=== PATIENT | male | born 1935 | race Caucasian/White ===

== ENCOUNTER 2019-06-08 13:30 | Outpatient (CLI) | payer MEDICARE, SELFPAY ==
--- NOTE | ~2019-06-08 | XR_ITS ---
MODIFIED ESOPHAGRAM HISTORY: Dysphagia. TECHNIQUE: Modified barium esophagram was performed on 06/08/2019. I administered fluoroscopy and perfo rmed the exam with speech pathologist. Patient was seated for lateral fluoroscopic imaging for inges tion of thin liquids, pudding, solids and quantified amounts, followed by thin liquids an uncontrolle d amounts. This was recorded on tape. A single fluoroscopic spot image was also recorded. The DAP for this procedure was 1.86 Gycm2. The amount of fluoroscopy time used during this procedure was 2.9 min utes. FINDINGS: Oral stage: Adequate function. Pharyngeal stage: Adequate function. Cervical/esophageal stage: Adequate function. IMPRESSION: Patient tolerated regular consistency oral feedings in the upright position. Please esmer elate with speech pathologist findings and specific feeding recommendations. Reviewed, dictated and finalized at location A. [employer] IMPRESSION: Patient tolerated regular consistency oral feedings in the upright position. Please correlate with speech pathologist findings and specific feedi ng recommendations.
--- NOTE | 2019-06-08 14:50 | STOPEVAL ---
Modified Barium Swallow Evaluation: Attending Provider: Alverto Cramer MD Referring Provider: CELESTE Outpatient Evaluation Start: 06/08/19 14:00 Freq: Status: Active Protocol: Document 06/08/19 14:00 BECHERERT (Rec: 06/08/19 14:04 BECHERERT [id number]) Therapy Assessment Status Assessment Status Assessment Status Evaluation Outpatient Past Medical History Neurological History Hx Neurological Disorders No Significant History Respiratory History Hx Respiratory Disorders No Significant History Genitourinary History Hx Genitourinary Disorders No Significant History Musculoskeletal History Hx Gout Yes Pain Assessment Timing of Pain Assessment Timing of Pain Assessment Assessment Self Report Self Report Pain Level 0 Pain Scale Pain Scale Used Numeric (1 - 10) Pain Score Pain Score 0: Self Report Modified Barium Swallow Evaluation Recent Swallowing History Reports Dysphagia Yes: food seems to get lodged, water doesn't clear Duration of Dysphagia approximately 8 years Other Factors Impacting Dysphagia None History of Pneumonia No Reported Difficult Consistencies Solids Intake Method Prior to Swallow Oral Evaluation Diet Prior to Swallow Evaluation Regular, Level 7 Liquid Consistency Prior to Swallow Thin (0) Evaluation Dentition Comments missing teeth Consistency Thin Uncontrolled 2 Method of Presentation Straw Oral Preparatory Symptoms None Oral Phase Symptoms None Pharyngeal Phase Symptoms None Severity of Vallecular Residue None - 0% No Residue Severity of Pyriform Sinus Residue None - 0% No Residue 8 Point Laryngeal Penetration-Aspiration Material Does Not Enter Airway Scale Cervical/Esophageal Symptoms None Thin Uncontrolled 1 Method of Presentation Cup Oral Preparatory Symptoms None Oral Phase Symptoms None Pharyngeal Phase Symptoms None Severity of Vallecular Residue None - 0% No Residue Severity of Pyriform Sinus Residue None - 0% No Residue 8 Point Laryngeal Penetration-Aspiration Material Does Not Enter Airway Scale Cervical/Esophageal Symptoms None Solid Consistency Other Amount liquid/solid mix (fruit cocktail) and cracker Method of Presentation Spoon Oral Preparatory Symptoms None Oral Phase Symptoms None Pharyngeal Phase Symptoms None Severity of Vallecular Residue None - 0% No Residue Severity of Pyriform Sinus Residue None - 0% No Residue 8 Point Laryngeal Penetration-Aspiration Material Does Not Enter Airway Scale Cervical/Esophageal Sympt
== END 2019-06-08 13:31 | disposition home or self-care (01) ==
PROVIDERS: PCP Family Medicine; Visit Provider Family Medicine
DX: R13.10 Dysphagia, unspecified (principal)
CPT/HCPCS: 92611

== ENCOUNTER 2019-10-07 20:03 | Emergency (ER) | payer MEDICARE, SELFPAY ==
--- NOTE | ~2019-10-07 | CT_ITS ---
EXAMINATION: CT brain wo con DATE: 10/07/2019 21:35 INDICATION: Seizure and fall TECHNIQUE: Computed tomography (CT) of the head was performed without intravenous contrast. Sagittal and coronal reconstructions were performed. The mA was adjusted according to patient size. Iterative reconstruction technique was employed. The dose-length product was 605.33 mGy-cm. COMPARISON: head CT dated 05/18/2017 FINDINGS: No fracture. No acute intracranial hemorrhage, acute infarction or abnormal extra axial fluid collect ion. 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 There is mil d scattered white matter hypoattenuation consistent with chronic small vessel ischemic disease. Symme tric prominence of the sulci and ventricles consistent with moderate age-appropriate diffuse cerebral volume loss. No mass/mass effect. Changes of bilateral intraocular lens replacement. The orbits, par anasal sinuses and mastoid air cells are normal. Intracranial calcified cerebral atherosclerosis is n oted. IMPRESSION: 1. No fracture or acute intracranial process. 2. 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 3. Age-related changes including moderate diffuse volume loss and mild scattered white matter hypoatt enuation consistent with chronic small vessel ischemic disease. Reviewed, dictated and finalized at location A. IMPRESSION: 1. No fracture or acute intracranial process. 2. 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 3. Age-related changes including moderate diffuse volume loss and mild scattere d white matter hypoattenuation consistent with chronic small vessel ischemic di sease.
--- NOTE | ~2019-10-07 | XR_ITS ---
XR chest 1V portable DATE: 10/07/2019 20:37 INDICATION: Seizure TECHNIQUE: Portable upright AP chest on 10/07/2019 at 2038 hours COMPARISON: 03/15/2017 two-view chest FINDINGS: Diffuse osteopenia. Borderline or increased heart size. Aortic calcification and unfolding. There is mild infiltrate or a telectasis involving the lower lung zones. No pleural effusion or pulmonary vascular congestion or pn eumothorax. IMPRESSION: Mild infiltrate or atelectasis in the lower lung zones Reviewed, dictated and finalized at location A.
[2019-10-07 20:03] VITALS: BP 134/82; PULSE 98; RESP 26; TEMP 36.8; O2SAT 96
--- NOTE | 2019-10-07 20:10 | ECG_ITS ---
Measurements Intervals [place] Rate: 96 P: 18 AL: 175 QRS: -22 QRSD: 101 T: 73 QT: 348 QTc: 440 Interpretive Statements SINUS RHYTHM EARLY PRECORDIAL R/S TRANSITION LEFT VENTRICULAR HYPERTROPHY AND ST-T CHANGE BORDERLINE ST ABNORMALITY- ANTEROLAT/LAT LEADS BASELINE WANDER- I, II BORDERLINE ECG Electronically Signed On 10-07-2019 21:27:52 CDT by Jeff Doshi D.O.
--- NOTE | 2019-10-07 20:25 | ED.SEIZURE ---
HPI - Seizure General Chief Complaint: Seizure Stated Complaint: seizure Time Seen by Provider: 10/07/19 20:22 Source: RN notes reviewed History of Present Illness HPI Narrative: Patient presents emergency department from home via EMS for seizure. Patient states he has a history of seizures followed by Dr. Brown for neurology. Patient is on Keppra 500 mg twice a day but states did not take his Keppra since yesterday. Per the patient's patient was seen in chair when he had a seizure. This is his first seizure in several years. Patient is currently alert and oriented x3 but had been ANO x1 in route. Patient does state he bit his tongue denies any other injury at this time. Per the the patient did slide down out of his chair onto the floor questionably striking his head. Patient denies any recent illness denies any other symptoms at this time Related Data Home Medications Medication Instructions Recorded Confirmed levetiracetam 500 mg tablet 500 mg PO Q12H 05/11/19 Allergies Allergy/AdvReac Type Severity Reaction Status Date / Time doxycycline Allergy Unknown Itching Verified 10/07/19 20:16 Review of Systems Review of Systems: Narrative: Gen.: Denies fevers or chills Eyes: Denies eye pain or visual change ENT: Denies congestion Respiratory: Denies shortness of breath or cough CV: Denies chest pain or palpitations GI: Denies abdominal pain nausea, emesis or diarrhea Musculoskeletal: Denies back pain or muscle pain Neuro: See HPI Skin: Denies rash Except as documented, all other systems reviewed and negative PMFSH Past Medical History Medical History Allergic rhinitis BPH (benign prostatic hyperplasia) Diverticulosis Elevated cholesterol GERD (gastroesophageal reflux disease) Gout History of colon polyps HTN (hypertension) Hypothyroidism Stricture of esophagus Family History Family History (Updated 11/30/13 @ 07:13 by DOCTOR UNKNOWN) Mother Hypertension Father Asthma Social History Social History Smoking status: Never smoker Second hand tobacco smoke exposure: No Alcohol intake: former Drinks per week: 3 Substance use: never Substance use type: does not use Gender identity (if verbalized by the patient): Male Exam Narrative: Exam Narrative: APPEARANCE: No acute distress, nontoxic, resting in bed HEENT: Normocephalic, atraumatic, OMM, multiple abrasions to tongue EYES: PERRL, EOMI NECK: Supple, nontender, full range of motion without pain, no meningismus RESPIRATORY: No respiratory distress, clear to auscultation bilaterally with no rhonchi wheezing or rales CARDIOVASCULAR: RRR s murmur ABDOMINAL: Soft, nontender, nondistended MUSCULOSKELETAL: Moves all extremities. No clubbing, cyanosis or edema. NEURO: A and O ?3, following commands, speech normal, no facial droop, no focal deficits SKIN:: Warm, dry. Normal Color PSYCHIATRIC: Normal affect/mood Course Course Emergency Course: Patient ANO x3 in the emergency department able to get up and ambulate with no difficulty. No complaints at this time. Per at baseline per patient he has not been taking his Keppra as prescribed and is only been taking it intermittently. He states that his current neurologist retired and that his PCP has been trying to get him set up to see a new neurologist. Discussed with patient the importance of taking his Keppra as prescribed Discussed with patient results of workup and diagnosis. Discussed need for follow-up with primary care, proper use of medication, and reasons to return to the emergency department. Patient understands and agrees to current treatment plan Vital Signs Vital signs: Vital Signs Temperature 98.2 F 10/07/19 20:03 Pulse Rate 98 10/07/19 20:03 Respiratory Rate 26 H 10/07/19 20:03 Blood Pressure 134/82 10/07/19 20:03 Pulse Oximetry 96 10/07/19 20
[2019-10-07 20:27] LABS: Basophils Percent Auto 0.3 % (0.2-1.2); Eosinophils Absolute Auto 0.1 K/mm3 (0-0.3); Eosinophils Percent Auto 0.5 % (0-4.4); Hemoglobin 15.8 g/dL (14.0-18.0); Immature Granulocyte Absolute 0.08 K/mm3 (0.00-0.031); Immature Granulocyte Percent A 0.7 % (0-0.5); Lymphocytes Percent Auto 24.5 % (18.3-44.2); Mean Corpuscular HGB Conc 35.1 g/dl (32-36); Mean Corpuscular Hemoglobin 33.6 pg (26-34); Mean Corpuscular Volume 95.7 fl (80-100); Mean Platelet Volume 9.5 fl (7.4-10.4); Monocytes Absolute Auto 0.8 K/mm3 (0.1-0.6); Monocytes Percent Auto 7.3 % (2.6-8.5); Neutrophils Absolute Auto 7.4 K/mm3 (1.3-6.7); Neutrophils Percent Auto 66.7 % (45.5-73.1); Platelet Count Result 208 k/mm3 (150-375)
[2019-10-07] MEDS: levETIRAcetam 500MG/NACL 100ML 500 MG/100 ML BAG 400 MG IVPB (20:30)
[2019-10-07 20:41] LABS: Albumin Level 4.3 g/dL (3.5-5.1); Alkaline Phosphatase 85 U/L (38-126); Aspartate Amino Transferase 22 U/L (17-59); Bilirubin,Total 0.7 mg/dL (0.2-1.3); Blood Urea Nitrogen 19 mg/dL (9-20); Calcium 8.8 mg/dL (8.4-10.2); Carbon Dioxide 15 mmol/L (22-30); Chloride 96 mmol/L (98-107); Estimated Glomerular Filt Rate > 60; Glucose 140 mg/dL (75-110); Potassium 3.8 mmol/L (3.4-5.0); Sodium 129 mmol/L (137-145)
[2019-10-07 20:47] LABS: Alanine Aminotransferase 22 U/L (4-50)
[2019-10-07 20:48] VITALS: BP 123/78; PULSE 87; RESP 20; O2SAT 94
--- NOTE | 2019-10-07 20:49 | PC.NURSE ---
pt states unable to void at this time. states will try again later
[2019-10-07 21:15] VITALS: BP 129/84; PULSE 85; RESP 20; O2SAT 97
--- NOTE | 2019-10-07 21:15 | PC.NURSE ---
pt unable to void at this time refuses straight cath
[2019-10-07] MEDS: SODIUM CHLORIDE 0.9% IV 1,000 ML 999 ML IV CONT (21:57)
[2019-10-07 21:58] VITALS: BP 138/88; PULSE 83; RESP 16; O2SAT 97
[2019-10-07 22:31] VITALS: BP 147/89; PULSE 84; RESP 22; O2SAT 97
--- NOTE | 2019-10-07 23:00 | PC.NURSE ---
PT AMBULATED IN HALLWAY WITH STEADY GAIT. PT ALERT AND ORIENTED X4. NEURO CHECKS WNL. DR VICTOR NOTIFIED
[2019-10-07 23:02] VITALS: BP 160/92; PULSE 88; RESP 20; O2SAT 96
[2019-10-07 23:04] LABS: Add Urine Microscopic? NO; Appearance Urine Clear (Clear); Bilirubin Urine Negative (Negative); Blood Urine Negative (Negative); Color Urine Straw (Yellow); Glucose Urine UA Negative (Negative); Ketones Urine Negative (Negative); Leukocyte Esterase Ur Negative LEU/UL (Negative); Nitrate Urine Negative (Negative); Protein Urine Negative (Negative); Specific Grav Ur 1.012 (1.001-1.035); Urobilinogen Urine Negative mg/dL (<2.0)
[2019-10-08 00:04] VITALS: BP 133/88; PULSE 82; RESP 20; O2SAT 96
== END 2019-10-08 00:15 | disposition home or self-care (01) ==
PROVIDERS: Emergency Provider Emergency Medicine; PCP Family Medicine
DX: G40.909 Epilepsy, unspecified, not intractable, without status epilepticus (principal); N40.0 Benign prostatic hyperplasia without lower urinary tract symptoms; K21.9 Gastro-esophageal reflux disease without esophagitis; E78.00 Pure hypercholesterolemia, unspecified; M10.9 Gout, unspecified; K57.90 Diverticulosis of intestine, part unspecified, without perforation or abscess without bleeding; I10 Essential (primary) hypertension; E03.9 Hypothyroidism, unspecified; Z87.891 Personal history of nicotine dependence; R91.8 Other nonspecific abnormal finding of lung field; I51.7 Cardiomegaly; R94.31 Abnormal electrocardiogram [ECG] [EKG]
CPT/HCPCS: 36415; 70450; 71045; 80053; 81003; 85025; 93005; 96365; 99284; J1953; J7030

== ENCOUNTER 2019-11-17 06:36 | Outpatient (CLI) | payer MEDICARE, SELFPAY ==
--- NOTE | 2019-11-17 07:30 | NEURO_ITS ---
TEST: ELECTROENCEPHALOGRAM DIAGNOSIS: SEIZURES PATIENT NUMBER: [id number] EEG NUMBER: [id number] RECORDING DATE: 11/17/19 CLINICAL HISTORY: Patient reported he had a seizure about 8 years ago and been well controlled until the last couple of months. CONDITION OF RECORDING: Awake, drowsy and sleep EEG DESCRIPTION: Basic resting occipital frequency consists of medium voltage 5- 7hz theta mixed and superimposed by low voltage 15-21hz beta. During drowsiness theta activity is seen intermittently mixed with the posterior alpha rhythms. Photic stimulation produced poor drive. Bilateral symmetrical sleep activity is seen during sleep. Nonparoxysmal. Nonfocal. Nonlateralizing. IMPRESSION: Abnormal record due to the presence of excessive amount of theta activity mixed with the delta activity. No evidence of normal background rhythms. Clinical correlation recommended. These abnormalities could be consistent with organic or metabolic encephalopathy. MTDD
== END 2019-11-17 06:37 | disposition home or self-care (01) ==
PROVIDERS: PCP Family Medicine; Visit Provider Psychiatry & Neurology Neurology
DX: R56.9 Unspecified convulsions (principal); R94.01 Abnormal electroencephalogram [EEG]
CPT/HCPCS: 95816

== ENCOUNTER 2019-12-12 12:42 | Outpatient (CLI) | payer MEDICARE, SELFPAY ==
--- NOTE | ~2019-12-12 | MR_ITS ---
EXAMINATION: MR brain/brain stem wo con EXAM DATE: 12/12/2019 13:41 INDICATION: Memory loss. TECHNIQUE: Magnetic resonance imaging (MRI) of the brain/brain stem obtained without contrast. Sagitt al T1, axial diffusion, gradient echo (T2*), T1, T2, FLAIR sequences obtained. There is no prior st udy for comparison. FINDINGS: There are no areas of restricted diffusion to suggest acute infarction. There is no acute hemorrhage seen on the T2*, a hemosiderin sensitive sequence. No intraparenchymal brain mass lesion. There is mild periventricular and subcortical T2/FLAIR signal hyperintensity, nonspecific but probab ly related to small vessel ischemic disease (microangiopathy). There is moderate prominence of the sulci and ventricles related to cerebral atrophy. There are no extra-axial collections. Flow voids are seen in the cerebral arteries on the T2-weighted sequences consistent with their expected patenc y. Patient has had bilateral ocular lens surgery. Soft tissue is unremarkable. Small right maxillar y sinus mucous retention cyst. IMPRESSION: 1. Chronic age related findings. Reviewed, dictated and finalized at location A.
== END 2019-12-12 12:43 | disposition home or self-care (01) ==
PROVIDERS: PCP Family Medicine; Visit Provider Psychiatry & Neurology Neurology
DX: R41.3 Other amnesia (principal)
CPT/HCPCS: 70551

== ENCOUNTER → 2020-06-11 02:44 | Outpatient (CLI) | payer OTHER, SELFPAY ==
[2020-06-11 22:46] LABS: SARS-CoV-2 RNA PCR Negative
== END ==
PROVIDERS: PCP Family Medicine; Visit Provider Internal Medicine Gastroenterology
DX: Z01.812 Encounter for preprocedural laboratory examination (principal); Z20.822 Contact with and (suspected) exposure to COVID-19
CPT/HCPCS: C9803; U0003; U0005

== ENCOUNTER 2020-06-14 01:32 | Day surgery (SDC) | payer OTHER, SELFPAY ==
[2020-06-05 14:02] VITALS: BMI 24.9
[2020-06-14 12:40] VITALS: BP 181/92; PULSE 62; RESP 20; TEMP 36; O2SAT 98
[2020-06-14 12:56] VITALS: BMI 23.2
[2020-06-14] MEDS: LACTATED RINGERS 1,000 ML 150 ML IV CONT (13:15)
--- NOTE | 2020-06-14 14:02 | WPDANESEPPF ---
Anes - Initial Pre Proc Eval Procedure: Operation Date: 06/14/20 14:00 Proposed Procedures p Esophagogastroduodenoscopy - Kenji Loera MD Date/Time: 06/14/20 14:02 Surgeon: Kenji Loera MD Pre Op Diagnosis: Dysphagia Patient Data Age: 84 Gender: M Height: 5 ft 6 in Weight: 65.4 kg Last Vital Signs Temp 96.8 F L 06/14/20 12:40 Pulse 62 06/14/20 12:40 Resp 20 06/14/20 12:40 BP 181/92 H 06/14/20 12:40 Pulse Ox 98 06/14/20 12:40 Allergies Allergy/AdvReac Type Severity Reaction Status Date / Time doxycycline Allergy Unknown Itching Verified 06/14/20 12:53 Home Medications Medication Instructions Recorded Confirmed Type levetiracetam 500 mg tablet 750 mg PO Q12H tablet 02/12/20 06/14/20 History lisinopril 2.5 mg tablet 2.5 mg PO DAILY #30 tablet 03/12/20 06/05/20 Rx allopurinol 300 mg tablet 150 mg PO DAILY #60 tablet 03/13/20 06/05/20 Rx levothyroxine 75 mcg tablet 75 mcg PO DAILY #90 tablet 03/13/20 06/14/20 Rx Patient hx anesthesia problems: none Family hx anesthesia problems: none PMFSH Past Medical History Medical History (Updated 05/28/20 @ 11:34 by LINDA MetcalfN-C) Allergic rhinitis BPH (benign prostatic hyperplasia) Diverticulosis Dysphagia Elevated cholesterol GERD (gastroesophageal reflux disease) Gout History of colon polyps HTN (hypertension) Hypothyroidism Stricture of esophagus Family History Family History Mother Hypertension Father Asthma Social History Social History Smoking status: Never smoker Second hand tobacco smoke exposure: No Alcohol intake: never Drinks per week: 3 Substance use: never Substance use type: does not use Living arrangements: with family Gender identity (if verbalized by the patient): Male Spiritual care concerns: No Anes - Eval Final PreProcedure Day of Procedure 06/14/20 14:02 Patient weight: normal Heart: regular rate and rhythm Lungs: clear to auscultation Airway: Mallampati scale class III Neurological: alert and oriented Last oral intake: >/= 8 hours ASA classification: III Emergent: no Anesthetic plan: proceed Anesthesia type and monitoring: general GIVS and standard monitoring Informed Consent: The patient's anesthetic plan and its attendant risks and benefits were discussed with the patient/family/POA. Questions were solicited and answers provided to the satisfaction of the patient/family/POA.
--- NOTE | 2020-06-14 14:11 | WPDHPUPDATE1 ---
History and Physical Update Update Date/Time: 06/14/20 14:11 History and Physical has been reviewed, including an updated exam of the patient. There are NO changes in the patient's condition. Risks, benefits, and alternatives have been discussed and questions answered. Patient agrees to proceed with procedure.
[2020-06-14 14:28] VITALS: BP 143/81; PULSE 71; RESP 20; O2SAT 94
[2020-06-14 14:38] VITALS: BP 148/86; PULSE 59; RESP 15; O2SAT 96
[2020-06-14 14:48] VITALS: BP 167/96; PULSE 56; RESP 14; O2SAT 98
== END 2020-06-14 14:55 | disposition home or self-care (01) ==
PROVIDERS: PCP Family Medicine; Visit Provider Internal Medicine Gastroenterology
PROC: 0DJ08ZZ Inspection of Upper Intestinal Tract, Via Natural or Artificial Opening Endoscopic (ICD-10-PCS; CPT 43235; principal; 2020-06-14 14:00)
DX: K22.2 Esophageal obstruction (principal); K44.9 Diaphragmatic hernia without obstruction or gangrene; I10 Essential (primary) hypertension; E03.9 Hypothyroidism, unspecified; N40.0 Benign prostatic hyperplasia without lower urinary tract symptoms; G40.909 Epilepsy, unspecified, not intractable, without status epilepticus; K57.30 Diverticulosis of large intestine without perforation or abscess without bleeding; E78.00 Pure hypercholesterolemia, unspecified; Z86.010 Personal history of colon polyps
CPT/HCPCS: 43249; C1726; C9803; J2704; J7120; U0003; U0005

== ENCOUNTER 2021-11-09 12:15 | Emergency (ER) | payer OTHER, SELFPAY ==
[2021-11-09 12:33] VITALS: BP 141/77; PULSE 68; RESP 18; TEMP 36.8; O2SAT 100
--- NOTE | 2021-11-09 12:47 | ED.GENADULT ---
HPI - General Adult General Chief complaint: Skin/Abscess/Foreign Body Stated complaint: open wound lt arm History of Present Illness HPI narrative: Patient is an 86-year-old male who presents to the [facility] via POV accompanied by spouse for an evaluation of a skin problem. Patient reports a laceration to left forearm caused by scissors today. Patient reports he was attempting to remove a Band-Aid when he accidentally cut himself. He also reports a open wound to dorsal aspect of left forearm that has been oozing a clear, yellow drainage x1 week. He believes was caused by an insect bite. The wound on dorsal aspect of left forearm he is not up-to-date on his tetanus prompting today's visit. Related Data Allergies Allergy/AdvReac Type Severity Reaction Status Date / Time doxycycline Allergy Unknown Itching Verified 09/02/21 13:57 adhesive tape Allergy Unknown Verified 11/09/21 12:41 Review of Systems Review of Systems: Pertinent negatives fever, chills, sweats, malaise, poor p.o. intake, change in appetite, headache, LOC, swelling, erythema, warmth, dizziness, streaking, numbness, tingling, loss of sensation, foreign body sensation, deformity, sob, chest pain, and heart palpitations/murmurs. PMFSH Past Medical History Medical History Allergic rhinitis BPH (benign prostatic hyperplasia) Diverticulosis Dysphagia Elevated cholesterol GERD (gastroesophageal reflux disease) Gout History of colon polyps HTN (hypertension) Hypothyroidism Shingles Stricture of esophagus Family History Family History Mother Hypertension Father Asthma Social History Social History Smoking status: Never smoker Second hand tobacco smoke exposure: No Alcohol intake: former Drinks per week: 3 Substance use: never Substance use type: does not use Gender identity (if verbalized by the patient): Male Spiritual care concerns: No Comments I have reviewed and agree with the patient's past medical, surgical, social, and family hx as documented by the RN. There is no relevant family history pertinent to the presenting complaint. Exam Narrative: GENERAL: Well-appearing, well-nourished, and in no acute distress. HEAD: Normocephalic, atraumatic. No facial swelling appreciated. EYES: PERRLA and EOMI. No evidence of erythema, swelling, or drainage. ENT: Nares clear, no rhinorrhea or epistaxis.Mucous membranes moist and pink. Uvula is midline without erythema and swelling. No evidence of obstruction, petechial rash, cobblestoning, lesions, ulcers, erythema, swelling, exudates, peritonsillar abscess, tenting, or drooling. Breath odor and voice normal. NECK: Supple. No Lymphadenopathy or nuchal rigidity appreciated. CHEST: Bilateral lung ray are clear to auscultation. No respiratory distress. No evidence of cough or pleuritic cp upon examination. HEART: Regular rate and rhythm. No murmur, gallop, or rub heard. EXTREMITIES: Normal range of motion. No edema. SKIN: Warm, dry. 1.5 cm laceration noted to palmar aspect of mid forearm. Laceration is superficial and appears to be scabbed over. 1.5 cm open wound noted to dorsal aspect of left forearm. Wound is consistent with skin tear. No evidence of cellulitis, abscess, streaking, induration, abrasions/lacerations, petechiae, hematoma, contusion, drainage, or bleeding. NEURO: No focal deficits. Alert and oriented x3. Course Course Level of Care: Express Care Visit Vital Signs Vital signs: Vital Signs Temperature 98.2 F 11/09/21 12:33 Pulse Rate 68 11/09/21 12:33 Respiratory Rate 18 11/09/21 12:33 Blood Pressure 141/77 H 11/09/21 12:33 Pulse Oximetry 100 11/09/21 12:33 Oxygen Delivery Room Air 11/09/21 12:33 Temperature 98.2 F 11/09/21 12:33 Pulse Rate 68 11/09/21 12:33 R
[2021-11-09] MEDS: TETANUS/DIPHTHERIA TOXOIDS ADSORB 0.5 ML VIAL (*BKC) IM (13:06)
== END 2021-11-09 13:21 | disposition home or self-care (01) ==
PROVIDERS: Emergency Provider Nurse Practitioner Family; PCP Family Medicine
DX: S51.812A Laceration without foreign body of left forearm, initial encounter (principal); W27.2XXA Contact with scissors, initial encounter; Y93.9 Activity, unspecified; S51.802A Unspecified open wound of left forearm, initial encounter; X58.XXXA Exposure to other specified factors, initial encounter; Z23 Encounter for immunization; N40.0 Benign prostatic hyperplasia without lower urinary tract symptoms; E78.00 Pure hypercholesterolemia, unspecified; K21.9 Gastro-esophageal reflux disease without esophagitis; M10.9 Gout, unspecified; I10 Essential (primary) hypertension; E03.9 Hypothyroidism, unspecified
CPT/HCPCS: 90471; 90714; 99212; G0463

== ENCOUNTER 2022-09-16 15:03 | Outpatient (CLI) | payer OTHER, SELFPAY ==
[2022-09-16 19:43] LABS: Mean Corpuscular Volume 88.3 fl (80-100); Red Cell Distribution Width 14.8 % (11.5-14.5); White Blood Count 6.4 K/mm3 (4.5-10.0)
[2022-09-17 08:44] LABS: Alanine Aminotransferase 22 U/L (6-50); Albumin Level 3.8 g/dL (3.5-5.1); Alkaline Phosphatase 70 U/L (38-126); Anion Gap 3 mmol/L (8-16); Aspartate Amino Transferase 30 U/L (17-59); Bilirubin,Total 0.8 mg/dL (0.2-1.3); Blood Urea Nitrogen 21 mg/dL (9-20); Calcium 8.6 mg/dL (8.4-10.2); Carbon Dioxide 31 mmol/L (22-30); Chloride 100 mmol/L (98-107); Cholesterol 174 mg/dL (0-200); Estimated Glomerular Filt Rate > 60; Glucose 86 mg/dL (65-110); HDL Direct 72 mg/dL; LDL Cholesterol Direct 77 mg/dL; Potassium 4.1 mmol/L (3.4-5.0); Sodium 134 mmol/L (137-145); Triglycerides 82 mg/dL (<150)
[2022-09-17 08:45] LABS: Hemoglobin A1C 4.9 % (<5.7)
[2022-09-17 15:42] LABS: Red Blood Count 4.32 M/mm3 (4.6-6.20)
[2022-09-17 15:43] LABS: Hematocrit 43.9 % (42.0-52.0); Hemoglobin 14.7 g/dL (14.0-18.0); Mean Corpuscular HGB Conc 33.5 g/dl (32-36); Platelet Count Result 169 k/mm3 (150-375)
[2022-09-17 15:44] LABS: Mean Platelet Volume 10.6 fl (7.4-10.4)
== END 2022-09-16 15:04 | disposition home or self-care (01) ==
LOC: ANHLAB 15:05
PROVIDERS: PCP Family Medicine; Visit Provider Physician Assistant
DX: E03.9 Hypothyroidism, unspecified (principal); I10 Essential (primary) hypertension; R73.01 Impaired fasting glucose; E78.00 Pure hypercholesterolemia, unspecified
CPT/HCPCS: 36415; 80053; 80061; 83036; 84443; 85027

== ENCOUNTER 2023-03-10 14:53 | Outpatient (CLI) | payer OTHER, SELFPAY ==
[2023-03-10 15:18] LABS: Hematocrit 44.5 % (42.0-52.0); Mean Corpuscular HGB Conc 33.7 g/dl (32-36); Mean Corpuscular Hemoglobin 33.8 pg (26-34); Mean Corpuscular Volume 100.2 fl (80-100); Mean Platelet Volume 10.1 fl (7.4-10.4); Platelet Count Result 142 k/mm3 (150-375); Red Blood Count 4.44 M/mm3 (4.6-6.20); Red Cell Distribution Width 12.9 % (11.5-14.5); White Blood Count 6.7 K/mm3 (4.5-10.0)
[2023-03-10 15:31] LABS: Alanine Aminotransferase 15 U/L (6-50); Alkaline Phosphatase 82 U/L (38-126); Anion Gap 7 mmol/L (8-16); Aspartate Amino Transferase 24 U/L (17-59); Bilirubin,Total 0.9 mg/dL (0.2-1.3); Blood Urea Nitrogen 25 mg/dL (9-20); Calcium 8.8 mg/dL (8.4-10.2); Carbon Dioxide 29 mmol/L (22-30); Chloride 97 mmol/L (98-107); Estimated Glomerular Filt Rate > 60; Glucose 92 mg/dL (65-110); Potassium 4.8 mmol/L (3.4-5.0); Sodium 133 mmol/L (137-145)
[2023-03-10 16:01] LABS: Thyroid Stimulating Hormone 0.358 uIU/mL (0.465-4.680)
[2023-03-10 16:37] LABS: Folic Acid 11.3 ng/mL (2.76->20); Vitamin B12 < 159.0 pg/mL (239-931)
== END 2023-03-10 14:54 | disposition home or self-care (01) ==
PROVIDERS: PCP Family Medicine; Visit Provider Family Medicine
DX: G40.909 Epilepsy, unspecified, not intractable, without status epilepticus (principal); R63.4 Abnormal weight loss; R53.83 Other fatigue; R13.10 Dysphagia, unspecified
CPT/HCPCS: 36415; 80053; 82607; 82746; 84443; 85027

== ENCOUNTER 2023-04-21 11:44 | Outpatient (CLI) | payer OTHER, SELFPAY ==
[2023-04-21 13:32] LABS: Folic Acid > 20.0 ng/mL (2.76->20)
== END 2023-04-21 11:45 | disposition home or self-care (01) ==
LOC: ANHLAB 11:48
PROVIDERS: PCP Family Medicine; Visit Provider Family Medicine
DX: E53.8 Deficiency of other specified B group vitamins (principal)
CPT/HCPCS: 36415; 82607; 82746

== ENCOUNTER 2023-06-23 15:07 | Outpatient (CLI) | payer OTHER, SELFPAY ==
[2023-06-25 14:31] LABS: Folic Acid > 20.0 ng/mL (2.76->20)
== END 2023-06-23 15:08 | disposition home or self-care (01) ==
LOC: ANHLAB 15:10
PROVIDERS: PCP Family Medicine; Visit Provider Family Medicine
DX: R13.10 Dysphagia, unspecified (principal); E03.9 Hypothyroidism, unspecified; E53.8 Deficiency of other specified B group vitamins
CPT/HCPCS: 36415; 82607; 82746; 84443

== ENCOUNTER 2023-06-28 13:08 | Outpatient (CLI) | payer OTHER, SELFPAY ==
--- NOTE | 2023-06-28 | ECG_ITS ---
Measurements Intervals [place] Rate: 59 P: 60 KS: 155 QRS: -25 QRSD: 108 T: -4 QT: 423 QTc: 419 Interpretive Statements SINUS BRADYCARDIA LEFT VENTRICULAR HYPERTROPHY MINIMAL Q WAVES- HIGH LATERAL LEADS BORDERLINE T WAVE ABNORMALITY- INFERIOR LEADS BASELINE ARTIFACT- I, II, III, AVR, AVL, AVF, V1, V4-V6 BORDERLINE ECG COMPARED TO ECG 10/07/2019 20:08:36 SINUS BRADYCARDIA NOW PRESENT Electronically Signed On 06-28-2023 14:13:31 CDT by Jeff Doshi D.O.
[2023-06-28 14:01] LABS: Anion Gap 0 mmol/L (8-16); Blood Urea Nitrogen 28 mg/dL (9-20); Calcium 8.8 mg/dL (8.4-10.2); Carbon Dioxide 33 mmol/L (22-30); Chloride 103 mmol/L (98-107); Estimated Glomerular Filt Rate 52; Glucose 84 mg/dL (65-110); Potassium 4.3 mmol/L (3.4-5.0); Sodium 136 mmol/L (137-145)
== END 2023-06-28 13:09 | disposition home or self-care (01) ==
PROVIDERS: PCP Family Medicine; Visit Provider Nurse Anesthetist, Certified Registered
DX: Z01.818 Encounter for other preprocedural examination (principal); I10 Essential (primary) hypertension
CPT/HCPCS: 36415; 80048; 93005

== ENCOUNTER 2023-09-14 08:28 | Outpatient (CLI) | payer OTHER, SELFPAY ==
[2023-09-14 09:58] LABS: Hematocrit 44.2 % (42.0-52.0); Hemoglobin 14.8 g/dL (14.0-18.0); Mean Corpuscular HGB Conc 33.5 g/dl (32-36); Mean Corpuscular Hemoglobin 34.7 pg (26-34); Mean Corpuscular Volume 103.8 fl (80-100); Mean Platelet Volume 10.8 fl (7.4-10.4); Platelet Count Result 151 k/mm3 (150-375); Red Blood Count 4.26 M/mm3 (4.6-6.20); Red Cell Distribution Width 12.2 % (11.5-14.5); White Blood Count 7.4 K/mm3 (4.5-10.0)
[2023-09-14 10:06] LABS: Alanine Aminotransferase 20 U/L (6-50); Alkaline Phosphatase 81 U/L (38-126); Anion Gap 6 mmol/L (4-12); Aspartate Amino Transferase 25 U/L (17-59); Bilirubin,Total 0.9 mg/dL (0.2-1.3); Blood Urea Nitrogen 25 mg/dL (9-20); Calcium 8.9 mg/dL (8.4-10.2); Carbon Dioxide 29 mmol/L (22-30); Chloride 102 mmol/L (98-107); Cholesterol 165 mg/dL (0-200); Estimated Glomerular Filt Rate > 60; Glucose 88 mg/dL (65-110); HDL Direct 63 mg/dL; Potassium 3.9 mmol/L (3.4-5.0); Sodium 137 mmol/L (137-145); Triglycerides 57 mg/dL (<150)
[2023-09-14 10:15] LABS: Appearance Urine Clear (Clear); Bilirubin Urine Negative (Negative); Blood Urine Negative (Negative); Color Urine Yellow (Yellow); Glucose Urine UA Negative (Negative); Ketones Urine Negative (Negative); Leukocyte Esterase Ur Negative LEU/UL (Negative); Nitrate Urine Negative (Negative); Protein Urine Negative (Negative); Specific Grav Ur 1.021 (1.001-1.035); Urobilinogen Urine 0.2 mg/dL (<2.0); pH Urine 5.5 (5.0-9.0)
[2023-09-14 10:17] LABS: LDL Cholesterol Direct 82 mg/dL
[2023-09-14 10:21] LABS: Add Urine Microscopic? NO
== END 2023-09-14 08:29 | disposition home or self-care (01) ==
PROVIDERS: PCP Family Medicine; Visit Provider Family Medicine
DX: E03.9 Hypothyroidism, unspecified (principal); E78.00 Pure hypercholesterolemia, unspecified; G40.909 Epilepsy, unspecified, not intractable, without status epilepticus; I10 Essential (primary) hypertension; Z00.00 Encounter for general adult medical examination without abnormal findings; R13.10 Dysphagia, unspecified; G45.9 Transient cerebral ischemic attack, unspecified
CPT/HCPCS: 36415; 80053; 80061; 81003; 84443; 85027

== ENCOUNTER 2024-05-09 16:59 | Outpatient (CLI) | payer OTHER, SELFPAY ==
--- NOTE | ~2024-05-09 | XR_ITS ---
HISTORY: left lateral foot pain COMPARISON: None TECHNIQUE: 3 views of the left foot were performed FINDINGS: No acute fracture or acute dislocation is appreciated. Mild degenerative disease is noted. The base of the fifth metatarsal is intact. Small calcaneal spur is noted. Trace ossification of the insertion of the Achilles tendon. Trace soft tissue swelling along the dorsum of the left forefoot. Significantly dense pattern of bone mineralization for which a systemic process is suspected. Calcified atherosclerotic disease within the visualized soft tissues IMPRESSION: Trace degenerative disease without acute fracture. Significantly dense pattern of bone mineralization for which a systemic process is suspected. Reviewed, dictated and finalized at location A. ING FOREMAN
--- OUTSIDE RECORDS SUMMARY | 2024-05-09 17:03 | XMS_ITS | Clinical Summary ---
Author Organization [facility] Address [address] [place] [id number] Care Team Providers Care Stock Driver Name Role Phone Unavailable Primary Care Provider Unavailabl e Social History Tobacco Use Types Packs/Day Years Used Date Smoking Tobacco: Never Assessed Sex and Gender Information Value Date Recorded Sex Assigned at Not on file Legal Sex Male 8:32 PM CDT Gender Identity Not on file Sexual Orientation Not on file Plan of Treatment Health Maintenance Due Date Last Done Comments DTaP, Tdap and Td Vaccines ( 1 - Tdap) 1954 Zoster Vaccines (1 of 2) 1984 Pneumococcal Vaccine: 65+ Ye ars (1 of 1 - PCV) 07/23/1999 RSV Immunization or 60+ Years (1 - 1-dose 75+ series) 2009 COVID-19 Vaccine ( - 2023-2 5 season) 2023 Influenza Adult (#1) 2024 Meningococcal B Vaccine Aged Out No l onger eligible based on patient's age to complete this topic Meningococcal Vaccine Aged Out No aisha amilcar eligible based on patient's age to complete this topic RSV Immunizations Under 20 Months Aged Out No longer eligible based on patient's age to complete this topic
--- OUTSIDE RECORDS SUMMARY | 2024-05-09 17:03 | XMS_ITS | Continuity of Care Document ---
Author Organization [facility] Address [address] [place] [address] Phone Care Team Providers Care Advertising Agency Manager Name Role Phone Christian Monson Unavailable Unavailable Procedures Procedure Date Post-op Follow-up Visit Post-op Follow-up Visit Remove Cataract, Insert Lens,Comanaged D Office/outpatient Visit, Est IOLMaster Advance Directives Directive Yes / No Effective Date File Name No Information Encounters Encounter Description Practice Location Reason(s) For Visit Diagnoses Date Provider Providers Copied on Encounter [facility], [address], [place], [place], [id number], tel:[phone] [facility] No Information 8 Iona Gonzales. [address] [facility] [address] [facility] [address] , [address], [place], [place], [facility], . tel:[phone] Referring Provider: Zaina Gibson OD, [address] [facility], [place], [address]. tel:[phone] [facility], [address], [place], [place], [id number], [place] tel:[phone] [facility] No Information 8 Iona Gonzales. [address] , [address], [place], [address], . tel:[phone] Referring Provider: Zaina Gibson OD, [address] [facility], [place], [address]. tel:[phone] [facility], [address], [place], [place], [id number], tel:[phone] [facility] No Information 8 Doi Edward. [address] , [address], [place], [place], [facility], . tel:[phone] Referring Provider: Zaina Gibson OD, [address] [facility], [place], [address]. tel:[phone] Office/outpat ient Visit, [facility], [address], [place], [place], [id number], [place] tel:[phone] [facility] No Information 8 [facility] Edjuanita. [address] [facility] , [address], [place], [place], [facility], . tel:[phone] Referring Provider: Zaina Gibson OD, [address] [facility], [place], [address]. tel:[phone] Family History Family Member Type Diagnosis Age At Onset No Information Payers Payer name Insurance type Covered libertarian ID Authoriza tion(s) No Information Social History Type Description Quantity Date Captured Comments Sex Male Smoking Status No Information Chief Complaint And Reason For Visit No Information Reason For Referral Reason For Referral No Information History Of Present Illness Encounter Date Complaint History Of Prese nt Illness No Information Functional Status Date Functional Assessmen t No Information Instructions Date Instruction Additional Infor mation No Information Assessments Type Assessment Date No Information Patient Care Teams Name Effective Dates (start - stop) Status Members No Information
== END 2024-05-09 17:00 | disposition home or self-care (01) ==
PROVIDERS: PCP Family Medicine; Visit Provider Physician Assistant
DX: M79.672 Pain in left foot (principal)
CPT/HCPCS: 73630

== ENCOUNTER 2024-05-15 13:47 | Outpatient (CLI) | payer OTHER, SELFPAY ==
--- OUTSIDE RECORDS SUMMARY | 2024-05-15 14:01 | XMS_ITS | Clinical Summary ---
Author Organization [facility] Address [address] [place] [address] Care Team Providers Care Liquor Department Manager Name Role Phone Unavailable Primary Care Provider [...]
--- OUTSIDE RECORDS SUMMARY | 2024-05-15 14:01 | XMS_ITS | Continuity of Care Document ---
Author Organization [facility] Address [address] [place] [address] Phone Care Team Providers Care Carbon Blocks Press Operator Name Role Phone Christian Monson Unavailable Unavailable Procedures Procedure Date Post-op Follow-up Visit Post-op Follow-up Visit Remove Cataract, Insert Lens,Comanaged D Office/outpatient Visit, Est IOLMaster Advance Directives Directive Yes / No Effective Date File Name No Information Encounters Encounter Description Practice Location Reason(s) For Visit Diagnoses Date Provider Providers Copied on Encounter [facility], [address], [place], [place], [id number], tel:[phone] [facility] No Information 8 Iona Gonzales. [address] [facility] , [address], [place], [place], [facility], . tel:[phone] Referring Provider: Zaina Gibson OD, [address] [facility], [place], [address]. tel:[phone] [facility], [address], [place], [place], [id number], [place] tel:[phone] [facility] No Information 8 Iona Gonzales. [address] [facility] , [address], [place], [address], . tel:[phone] Referring Provider: Zaina Gibson OD, [address] [facility], [place], [address]. tel:[phone] [facility], [address], [place], [place], [id number], tel:[phone] [facility] No Information 8 Doi Edward. [address] [facility] , [address], [place], [place], [facility], . tel:[phone] Referring Provider: Zaina Gibson OD, [address] [facility], [place], [address]. tel:[phone] Office/outpat ient Visit, [facility], [address], [place], [place], [address], [place] tel:[phone] [facility] No Information 8 [facility] Edjuanita. [address] [facility] , [address], [place], [place], [facility], . tel:[phone] Referring Provider: Zaina Gibson OD, [address] [facility], [place], [address]. tel:[phone] Family History Family Member Type Diagnosis Age At Onset No Information Payers Payer name Insurance type Covered alliance party ID Authoriza tion(s) No Information Social History [...]
[2024-05-15 14:55] LABS: Alanine Aminotransferase 28 U/L (6-50); Albumin Level 3.5 g/dL (3.5-5.1); Alkaline Phosphatase 116 U/L (38-126); Anion Gap 4 mmol/L (4-12); Aspartate Amino Transferase 27 U/L (17-59); Bilirubin,Total 0.7 mg/dL (0.2-1.3); Blood Urea Nitrogen 24 mg/dL (9-20); Calcium 8.7 mg/dL (8.4-10.2); Carbon Dioxide 30 mmol/L (22-30); Chloride 104 mmol/L (98-107); Estimated Glomerular Filt Rate > 60; Glucose 90 mg/dL (65-110); Potassium 4.6 mmol/L (3.4-5.0); Sodium 138 mmol/L (137-145); Uric Acid 4.1 mg/dL (3.5-8.5)
== END 2024-05-15 13:48 | disposition home or self-care (01) ==
PROVIDERS: PCP Family Medicine; Visit Provider Physician Assistant
DX: E03.9 Hypothyroidism, unspecified (principal); I10 Essential (primary) hypertension; E53.8 Deficiency of other specified B group vitamins; R93.89 Abnormal findings on diagnostic imaging of other specified body structures; M10.9 Gout, unspecified
CPT/HCPCS: 36415; 80053; 84443; 84550

== ENCOUNTER 2024-05-26 13:46 | Outpatient (CLI) | payer OTHER, SELFPAY ==
--- OUTSIDE RECORDS SUMMARY | 2024-05-26 13:48 | XMS_ITS | Continuity of Care Document ---
Author Organization [facility] Address [address] [place] [address] Phone Care Team Providers Care Commercial Loan Closer Name Role Phone Christian Monson Unavailable Unavailable Procedures Procedure Date Post-op Follow-up Visit Post-op Follow-up Visit Remove Cataract, Insert Lens,Comanaged D Office/outpatient Visit, Est IOLMaster Advance Directives Directive Yes / No Effective Date File Name No Information Encounters Encounter Description Practice Location Reason(s) For Visit Diagnoses Date Provider Providers Copied on Encounter [facility], [address], [place], [place], [id number], tel:[phone] [facility] No Information 8 Iona Gonzales. [address] [facility] , [address], [place], [place], [facility], . tel:[phone] Referring Provider: Zaina Gibson OD, [address] [facility], [place], [address]. tel:[phone] [facility], [address], [place], [place], [address], [place] tel:[phone] [facility] No Information 8 Iona Gonzales. [address] [facility] , [address], [place], [address], . tel:[phone] Referring Provider: Zaina Gibson OD, [address] [facility], [place], [address]. tel:[phone] [facility], [address], [place], [place], [id number], tel:[phone] [facility] No Information 8 Doi Edward. [address] [facility] , [address], [place], [place], [facility], . tel:[phone] Referring Provider: Zaina Gibson OD, [address] [facility], [place], [address]. tel:[phone] Office/outpat ient Visit, [facility], [address], [place], [place], [address], [place] tel:[phone] [facility] No Information 8 [facility] Edjuanita. [address] [facility] , [address], [place], [place], [facility], . tel:[phone] Referring Provider: Zaina Gibson OD, [address] [facility], [place], [address]. tel:[phone] Family History Family Member Type Diagnosis Age [...]
--- OUTSIDE RECORDS SUMMARY | 2024-05-26 13:48 | XMS_ITS | Clinical Summary ---
Author Organization [facility] Address [address] [place] [address] Care Team Providers Care Manual Plate Filler Name Role Phone Unavailable Primary Care Provider [...]
[2024-05-26 17:57] LABS: Folic Acid 12.4 ng/mL (2.76->20)
[2024-05-29 14:57] LABS: Ionized Calcium 4.8 mg/dL (4.7-5.5)
== END 2024-05-26 13:47 | disposition home or self-care (01) ==
LOC: ANHLAB 13:46
PROVIDERS: PCP Family Medicine; Visit Provider Physician Assistant
DX: R93.89 Abnormal findings on diagnostic imaging of other specified body structures (principal); I10 Essential (primary) hypertension; E03.9 Hypothyroidism, unspecified; E53.8 Deficiency of other specified B group vitamins
CPT/HCPCS: 36415; 82330; 82607; 82746; 83970

== ENCOUNTER 2024-06-07 14:39 | Outpatient (CLI) | payer OTHER, SELFPAY ==
[2024-06-07 15:46] LABS: Vitamin D 25 Hydroxy 13.1 ng/mL
--- OUTSIDE RECORDS SUMMARY | 2024-06-07 16:23 | XMS_ITS | Continuity of Care Document ---
Author Organization [facility] Address [address] [place] [address] Phone Care Team Providers Care Geochemistry Teacher Name Role Phone Christian Monson Unavailable Unavailable Procedures Procedure Date Post-op Follow-up Visit Post-op Follow-up Visit Remove Cataract, Insert Lens,Comanaged D Office/outpatient Visit, Est IOLMaster Advance Directives Directive Yes / No Effective Date File Name No Information Encounters Encounter Description Practice Location Reason(s) For Visit Diagnoses Date Provider Providers Copied on Encounter [facility], [address], [place], [place], [id number], tel:[phone] [facility] No Information 8 Iona Gonzales. [address] [facility] , [address], [place], [place], [facility], . tel:[phone] Referring Provider: Zaina Gibson OD, [address] [facility], [place], [address]. tel:[phone] [facility], [address], [place], [place], [address], [place] tel:[phone] [facility] No Information 8 Iona Gonzales. [address] [facility] , [address], [place], [address], . tel:[phone] Referring Provider: Zaina Gibson OD, [address] [facility], [place], [address]. tel:[phone] [facility], [address], [place], [place], [address], tel:[phone] [facility] No Information 8 Doi Edward. [address] [facility] , [address], [place], [place], [facility], . tel:[phone] Referring Provider: Zaina Gibson OD, [address] [facility], [place], [address]. tel:[phone] Office/outpat ient Visit, [facility], [address], [place], [place], [address], [place] tel:[phone] [facility] No Information 8 [facility] Edjuanita. [address] [facility] , [address], [place], [place], [facility], . tel:[phone] Referring Provider: Zaina Gibson OD, [address] [facility], [place], [address]. tel:[phone] Family History Family Member Type Diagnosis Age At Onset No Information Payers Payer name Insurance type Covered green party ID Authoriza tion(s) No Information Social [...]
--- OUTSIDE RECORDS SUMMARY | 2024-06-07 16:23 | XMS_ITS | Clinical Summary ---
Author Organization [facility] Address [address] [place] [address] Care Team Providers Care Taker Out Name Role Phone Unavailable Primary Care Provider [...] - 1-dose 75+ series) 2009 COVID-19 Vaccine (2023-2 5 season) 2023 Influenza Adult (#1) 2024 [...]
== END 2024-06-07 14:40 | disposition home or self-care (01) ==
LOC: ANHLAB 14:40
PROVIDERS: PCP Family Medicine; Visit Provider Physician Assistant
DX: R93.89 Abnormal findings on diagnostic imaging of other specified body structures (principal); R53.83 Other fatigue; E55.9 Vitamin D deficiency, unspecified
CPT/HCPCS: 36415; 82306